=== PATIENT | male | born 1965 | race Caucasian/White ===

== ENCOUNTER 2017-07-12 18:19 | Inpatient (IN) ==
--- NOTE | 2017-07-12 18:31 | Emergency Department Note ---
Disposition Clinical Impression: Hyponatremia, Confusion Disposition: Admitted As Inpatient Condition: Fair Referrals: Nikunj Estrada MD [Primary Care Provider] - Forms: ED Satisfaction Letter Time of Disposition: 19:34 Altered Mental Status HPI - General Chief Complaint: ED Altered Mental Status Stated Complaint: altered mental status Time Seen by Provider: 07/12/17 18:24 Source: patient, EMS Mode of arrival: ambulatory Limitations: no limitations Nursing Notes Reviewed: Yes Vital Signs Reviewed: Yes - History of Present Illness HPI Narrative: 52-year-old male who was at the halfway who apparently had some altered mental status not acting appropriately. Patient does have a history of seizure disorder. I have seen this patient many times in the past he did have a call problem but states he has not drank in several years. On arrival here he is interacting answers questions appropriately. Initial working diagnosis is the patient was postictal following the seizure. MD complaint: altered mental status Onset (ago): Just [employer] Timing confirmed by: caregiver Pain Severity: none Context: seizure disorder, history psychiatric disease Associated symptoms: Reports: denies other symptoms - Related Data Home Medications Medication Instructions Recorded Confirmed Albuterol Sulfate [Proair 2 puff IH Q4HR PRN 08/20/15 05/22/16 Respiclick] Alendronate Sodium [Fosamax] 70 mg PO MO 08/20/15 05/22/16 Atenolol [Tenormin] 25 mg PO DAILY 08/20/15 05/22/16 Citalopram [CeleXA] 40 mg PO DAILY 08/20/15 05/22/16 Cyproheptadine HCl 4 mg PO TID 08/20/15 05/22/16 Ferrous Sulfate 325 mg PO DAILY 08/20/15 05/22/16 Folic Acid 1 mg PO DAILY 08/20/15 05/22/16 Megestrol Acetate [Megace] 80 mg PO DAILY 08/20/15 05/22/16 Montelukast [Singulair] 10 mg PO HS 08/20/15 05/22/16 OLANZapine [Zyprexa] 30 mg PO QAM 08/20/15 05/22/16 Phenytoin Sodium Extended 200 mg PO BID 08/20/15 05/22/16 [Phenytek] Ranitidine HCl [Zantac] 150 mg PO BID 08/20/15 05/22/16 Trihexyphenidyl [Artane] 2 mg PO BID 08/20/15 05/22/16 Zolpidem [Ambien] 10 mg PO HS 08/20/15 05/22/16 clonazePAM [Clonazepam] 1 mg PO BID 08/20/15 05/22/16 Calcium Carbonate/Vitamin D3 1 tab PO DAILY 12/27/15 05/22/16 [Calcium 500-Vit D3 400 Tablet] Doxepin HCl 100 mg PO HS 12/27/15 05/22/16 Lactose-Reduced Food [Ensure Plus] 1 bottle PO QID 12/27/15 05/22/16 metFORMIN [Glucophage] 500 mg PO BIDWM 12/27/15 05/22/16 Prazosin [Minipress] 1 mg PO HS 05/22/16 05/22/16 risperiDONE [Risperdal] 2 mg PO BID 05/22/16 05/22/16 Previous Rx's Medication Instructions Recorded Levofloxacin [Levaquin] 750 mg PO DAILY #5 tablet 05/24/16 Sulfamethoxazole/Trimeth DS 1 each PO BID #14 tablet 12/10/16 [Bactrim DS] Allergies Allergy/AdvReac Type Severity Reaction Status Date / Time No Known Allergies Allergy Verified 08/20/15 17:08 All systems ED: reviewed and negative except as stated. Constitutional: Denies: fever, chills, weakness, weight change Eyes: Denies: eye pain, eye discharge, vision change ENT ED: Denies: ear pain, throat pain, dental pain, hearing loss, epistaxis, congestion, dysphagia Cardiovascular: Denies: chest pain, palpitations, dyspnea on exertion, edema, syncope Respiratory: Denies: cough, dyspnea, wheezes, hemoptysis, stridor Gastrointestinal: Denies: abdominal pain, nausea, vomiting, diarrhea, constipation, hematemesis, melena, hematochezia Genitourinary: Denies: urgency, dysuria, frequency, hematuria Musculoskeletal: Denies: back pain, neck pain, arthralgia, myalgia Integumentary: Denies: rash, abrasion, lesions Neurological: Reports: other (Altered mental status). Denies: headache, weakness, numbness, paresthesias, confusion, abnormal gait, vertigo Psychiatric: Denies: anxiety, depression, suicidal thoughts, homicidal thoughts , auditory hallucinations, visual hallucinations Endocrine: Denies: fatigue Hematological/Lymphatic: Denies: easy bleeding, easy bruising Allergic/Immunologic: Denies: facial swelling, urticaria Past Medical History - Past Medical History Medical history: Reports: asthma, diabetes, GERD, hyperlipidemia, hypertension, seizures, other Surgical history: Reports: herniorrhaphy, other Psychiatric history: Reports: schizophrenia - Social History Smoking Status: Former smoker Smokeless Tobacco Status: No Alcohol use: Reports: none Drug use: Reports: none Physical Exam - General Limitations: no limitations General appearance: alert, in no apparent distress - Head Head exam: atraumatic, normocephalic, normal inspection - Eye Eye exam: Present: normal appearance - ENT ENT exam: normal exam, normal oropharynx, mucous membranes moist - Neck Neck exam: Present: normal inspection, full ROM, trachea midline - Chest Chest inspection: Present: normal inspection, symmetric chest wall rise - Respiratory Respiratory exam: Present: normal lung sounds bilaterally - Cardiovascular Cardiovascular exam: Present: regular rate, normal rhythm, normal heart sounds - Abdominal Exam Abdominal exam: Present: soft, Non-Tender. Absent: tenderness, distention, guarding, rebound, rigidity - Extremities Exam Extremities exam: Present: normal inspection, full ROM. Absent: tenderness, pedal edema - Expanded Lower Extremity Exam Neurovascular/Tendon exam: Absent: motor deficit, sensory deficit, tendon deficit Gait: observed and normal - Back Exam Back exam: Present: normal inspection, full ROM. Absent: tenderness - Neurological Exam Neurological exam: Present: alert, oriented X3 - Psychiatric Psychiatric exam: Present: normal affect, normal mood - Skin Skin exam: Present: warm, dry, intact, normal color Course - Reevaluation(s) Reevaluation #1: 52-year-old male with history seizure disorder bipolar disorder comes in with confusion at the halfway. Patient's evaluation included electrolytes which showed sodium of 120. Consultation obtained with nephrology will start him on his normal saline at 75 an hour to admit. Time: 19:33 - Consultations Consultation #1: Discussed with Dr. Humphreys, we'll start sodium chloride at 75 mL an hour. Time: 19:15 Consultation #2: Discussed with , admit. Time: 19:32 Vital Signs Temperature 98.3 F 07/12/17 18:22 Pulse Rate 89 07/12/17 18:22 Respiratory Rate 18 07/12/17 18:22 Blood Pressure 134/86 07/12/17 18:22 O2 Sat by Pulse Oximetry 98 07/12/17 18:22 Temperature 98.3 F 07/12/17 18:22 Pulse Rate 89 07/12/17 18:22 Respiratory Rate 18 07/12/17 18:22 Blood Pressure 134/86 07/12/17 18:22 O2 Sat by Pulse Oximetry 98 07/12/17 18:22 Oxygen Delivery Oxygen Delivery Room Air Altered Mental Status - Lab Data Result diagrams: 07/12/17 18:54 07/12/17 18:54 Lab Results 07/12/17 07/12/17 Range/Units 18:54 18:54 WBC 8.1 (4.3-11.1) K/mcL RBC 3.60 L (4.19-5.50) M/mcL Hgb 11.4 L (12.9-16.9) g/dL Hct 32.6 L (37.5-50.1) % MCV 90.6 (83.0-100.0) fL MCH 31.7 (28.0-33.3) pg MCHC 35.0 (31.6-35.5) g/dL RDW 13.2 (11.5-14.5) % Plt Count 267 (140-400) K/mcL MPV 8.9 L (9.4-12.4) fL Immature Gran % 0.4 (0-4) % Seg Neutrophils % 73.2 % Lymphocytes % 16.9 % Monocytes % 9.2 % Eosinophils % 0.2 % Basophils % 0.1 % Neutrophils # 5.9 (1.6-8.9) K/mcL Lymphocytes # 1.4 (0.6-4.6) K/mcL Monocytes # 0.8 (0.0-1.3) K/mcL Eosinophils # 0.0 (0.0-0.6) K/mcL Basophils # 0.0 (0.0-0.2) K/mcL Sodium 120 L* (136-145) mEq/L Potassium 4.3 (3.5-4.5) mEq/L Chloride 90 L (98-109) mEq/L Carbon Dioxide 19 (19-29) mEq/L BUN 6 L (8-26) mg/dL Creatinine 0.65 L (0.72-1.25) mg/dL Est GFR ( Amer) > 60 (> 60) Est GFR (Non-Af Amer) > 60 (> 60) BUN/Creatinine Ratio 9 (6-26) Glucose 99 (70-99) mg/dL Calculated Osmolality 248 L (280-300) Calcium 8.4 L (8.6-10.8) mg/dL Magnesium 1.6 (1.6-2.6) mg/dL Salicylates < 5.0 L (15-30) mg/dL Acetaminophen < 1.0 L (10-30) mcg/mL Phenytoin 14.3 (10-20) mcg/mL Ethyl Alcohol < 10 (0-10) mg/dL - EKG Data EKG attestation: Yes I reviewed and interpreted this EKG. EKG shows normal: sinus rhythm Rate: normal Rhythm: NSR Voltage: c/w LVH Interpretation: no acute changes TPA Checklist - LKW: 3-4.5 hrs Add. Warnings/Precautions Patient/family understanding: The patient/family members have been counseled and understood the risk, benefit , and alternatives of treatment.
[2017-07-12 19:03] LABS: Basophils % 0.1 %; Eosinophils % 0.2 %; Hematocrit 32.6 % (37.5-50.1); Hemoglobin 11.4 g/dL (12.9-16.9); Immature Granulocytes % 0.4 % (0-4); Lymphocytes # 1.4 K/mcL (0.6-4.6); Lymphocytes % 16.9 %; Mean Corpuscular Hemoglobin 31.7 pg (28.0-33.3); Mean Corpuscular Volume 90.6 fL (83.0-100.0); Mean Platelet Volume 8.9 fL (9.4-12.4); Monocytes # 0.8 K/mcL (0.0-1.3); Monocytes % 9.2 %; Neutrophils # 5.9 K/mcL (1.6-8.9); Platelet Count 267 K/mcL (140-400); Red Cell Distribution Width 13.2 % (11.5-14.5); Segmented Neutrophils % 73.2 %
[2017-07-12 19:16] LABS: BUN/Creatinine Ratio 9 (6-26); Blood Urea Nitrogen 6 mg/dL (8-26); Calcium 8.4 mg/dL (8.6-10.8); Carbon Dioxide 19 mEq/L (19-29); Chloride 90 mEq/L (98-109); Glucose 99 mg/dL (70-99); Magnesium 1.6 mg/dL (1.6-2.6); Osmolality,Calculated 248 (280-300); Potassium 4.3 mEq/L (3.5-4.5); eGFR For African Americans > 60 (> 60); eGFR For Non-African Americans > 60 (> 60)
[2017-07-12 19:17] LABS: Acetaminophen < 1.0 mcg/mL (10-30); Ethanol < 10 mg/dL (0-10); Salicylate < 5.0 mg/dL (15-30)
[2017-07-12 19:19] LABS: Sodium 120 mEq/L (136-145)
[2017-07-12 19:22] LABS: Phenytoin (Dilantin) 14.3 mcg/mL (10-20)
[2017-07-12 19:30] LABS: Bilirubin,Urine Negative (Negative); Blood,Urine Negative (Negative); Clarity,Urine Clear (Clear); Color,Urine Yellow (Yellow); Glucose,Urine (UA) Normal (Normal); Ketones,Urine Negative (Negative); Leukocyte Esterase,Urine Negative (Negative); Nitrite,Urine Negative (Negative); Protein,Urine Negative (Neg-Trace); Specific Gravity,Urine 1.007 (1.010-1.025); Urobilinogen,Urine Normal (Normal)
[2017-07-12 19:35] LABS: Amphetamine Screen,Urine Negative ng/mL (Cutoff=1000); Barbiturate Screen,Urine Negative ng/mL (Cutoff=200); Benzodiazepines Screen,Urine Negative ng/mL (Cutoff=200); Cannabinoid Screen,Urine Negative ng/mL (Cutoff = 50); Cocaine Screen,Urine Negative ng/mL (Cutoff= 300); Opiate Screen,Urine Negative ng/mL (Cutoff=300); Phencyclidine Screen,Urine Negative ng/mL (Cutoff=25)
[2017-07-12] MEDS: 0.9 % Sodium Chloride 1,000 ML IVC SCH (19:40)
[2017-07-12] MEDS ORDERED: D5% in Water 1,000 ML IVC PRN (21:53)
[2017-07-12] MEDS ORDERED: Acetaminophen 325 MG TABLET PO PRN (21:53)
[2017-07-12] MEDS ORDERED: *HR* Dextrose 50 % in Water (Syg) 50 ML SYRINGE IVP PRN (21:53)
[2017-07-12] MEDS ORDERED: Dextrose Gel 15 GM PO PRN ×2 (21:53)
[2017-07-12] MEDS ORDERED: Naloxone 0.4 MG/ML INJ IVP PRN (21:53)
[2017-07-12] MEDS ORDERED: *HR* LORazepam 2 MG/ML VIAL IVP PRN (21:59)
[2017-07-12] MEDS ORDERED: Magnesium Sulfate 2 GM in D5% in Water 100 ML IVPB ONE (22:01)
--- NOTE | 2017-07-12 22:13 | Internal Med History&Physical ---
Date of Encounter: 07/12/17 Time of Encounter: 21:25 Assessment and Plan (1) Hyponatremia Current visit: No Status: Acute 1. Will continue IVF as recommended per Dr. Cheng. 2. Will trend serial sodium levels. 3. Consult Dr. Cheng placed by ER staff -- appreciated nephrologic support. 4. Given prior abnormal CXR and Chest CT along with smoking history, will order repeat chest CT to evaluate for possible malignancy. (2) Diabetes Current visit: No Status: Chronic 1. Stop Metformin while in the hospital. 2. Will place on SSI and monitor glucose closely. 3. Adjust insulin as necessary. Qualifiers: Diabetes mellitus type: type 2 Diabetes mellitus complication status: without complication Diabetes mellitus salvage determiner insulin use: without correction use Qualified Code(s): E11.9 - Type 2 diabetes mellitus without complications (3) Seizure disorder Current visit: No Status: Chronic 1. Will place on seizure precautions and continue Dliantin. 2. Monitor closely for seizures and use Ativan PRN. 3. Will place on CIWA protocol given hsitory of heavy alcohol use in the past. Patient denies any current alcohol use. (4) DVT prophylaxis Current visit: No Status: Acute 1. Heparin SQ. Internal Medicine - H&P: HPI Chief complaint: seizure; hyponatremia Admitted From: Emergency Dept Plans for Post Hospital Care: Home History of present illness: Mr. Mishra is a 52 year old male who presents to the ER tonight for concerns of altered mental status and possible seizure. He [facility] in a [facility] due to his underlying psychiatric disorders and history of alcohol abuse. When he arrived in the ER, there was no one accompanying him according to ER staff discussions. ER physician contacted the penitentiary and there were reports that he was not acting himself and likely postictal from a seizure. According to the penitentiary staff and patient, he has not had any alcohol in years and has been alcohol free. He was found to have evidence of hyponatremia sodium level 120. His phenytoin level was 14. Dr. Rutherford contacted Dr. Cheng regarding sodium level and for consultation for hyponatremia. Dr. Cheng recommended starting him on saline infusion and trending his sodium levels. Patient was then admitted to the hospitalist service. Upon my assessment of the patient, he is lying in bed comfortably and in no distress. He is alert and oriented 3. He confirms that he has been alcohol free for several years now. He is rather cachectic and appears malnourished. I asked him about his oral intake, and he states he is eating and drinking fluids well. He denies any polydipsia. He confirms he has seizures and type 2 diabetes. He does not recall when his last seizure was. He is not sure if he had a seizure today. He does look a little dehydrated on clinical exam, however. He denies any fevers, cough, congestion, vomiting, or diarrhea. Past Med Surg Social Fam HX - Past Medical History Attestation: Yes The following information was validated with the patient. Source: patient, old records reviewed Medical history: asthma, diabetes, GERD, hyperlipidemia, hypertension, seizures Psychiatric history: schizophrenia - Past Surgical History Surgical History: herniorrhaphy, other - Social History Smoking Status: Former smoker Smokeless Tobacco Status: Yes Alcohol use: none Drug use: none Current living situation: Prison Activity Level: Independent ambulation Recent Out of Country Travel Within the Last 8 Weeks: No - Family History Father Living Status: Hx Family Cardiac Disorders: Yes (Heart problem) Hx Family Cancer: Yes (Liver cancer) Mother Living Status: Hx Family Neuromuscular Disorders: Yes (CVA) Hx Family Neurologic Disorders: No (MOTHER PASSED FROM A STROKE) Internal Medicine - H&P: Meds Albuterol Sulfate [Proair Respiclick] 2 puff IH Q4HR PRN 08/20/15 [History] Alendronate Sodium [Fosamax] 70 mg PO MO 08/20/15 [History] Atenolol [Tenormin] 25 mg PO DAILY 08/20/15 [History] Citalopram [CeleXA] 40 mg PO DAILY 08/20/15 [History] Cyproheptadine HCl 4 mg PO TID 08/20/15 [History] Ferrous Sulfate 325 mg PO DAILY 08/20/15 [History] Folic Acid 1 mg PO DAILY 08/20/15 [History] Megestrol Acetate [Megace] 80 mg PO DAILY 08/20/15 [History] Montelukast [Singulair] 10 mg PO HS 08/20/15 [History] OLANZapine [Zyprexa] 30 mg PO QAM 08/20/15 [History] Phenytoin Sodium Extended [Phenytek] 200 mg PO BID 08/20/15 [History] Ranitidine HCl [Zantac] 150 mg PO BID 08/20/15 [History] Trihexyphenidyl [Artane] 2 mg PO BID 08/20/15 [History] Zolpidem [Ambien] 10 mg PO HS 08/20/15 [History] clonazePAM [Clonazepam] 1 mg PO BID 08/20/15 [History] Calcium Carbonate/Vitamin D3 [Calcium 500-Vit D3 400 Tablet] 1 tab PO DAILY [History] Doxepin HCl 100 mg PO HS 12/27/15 [History] Lactose-Reduced Food [Ensure Plus] 1 bottle PO QID 12/27/15 [History] metFORMIN [Glucophage] 500 mg PO BIDWM 12/27/15 [History] Prazosin [Minipress] 1 mg PO HS 05/22/16 [History] risperiDONE [Risperdal] 2 mg PO BID 05/22/16 [History] Levofloxacin [Levaquin] 750 mg PO DAILY #5 tablet 05/24/16 [Rx] Sulfamethoxazole/Trimeth DS [Bactrim DS] 1 each PO BID #14 tablet 12/10/16 [Rx] 3 Allergy/AdvReac Type Severity Reaction Status Date / Time No Known Allergies Allergy Verified 08/20/15 17:08 - Constitutional Constitutional: no chills, no fever(s), no night sweats - EENT Eyes: no blurry vision, no change in vision Ears: no ear pain, no tinnitus Nose, mouth and throat: no nasal congestion, no nasal discharge, no sinus pressure, no sore throat - Cardiovascular Cardiovascular ROS IM: no chest pain, no diaphoresis, no dyspnea, no dyspnea on exertion, no edema, no palpitations, no paroxysmal nocturnal dyspnea - Respiratory Respiratory: no cough, no hemoptysis, no dyspnea on exertion, no chest congestion, no excessive phlegm production - Gastrointestinal Gastrointestinal: no abdominal pain, no change in bowel habits, no diarrhea, no hematemesis, no hematochezia, no melena, no nausea, no vomiting - Genitourinary Genitourinary ROS male: no dysuria, no flank pain, no hematuria - Musculoskeletal Musculoskeletal ROS IM: no arthralgias, no back pain - Integumentary Integumentary IM: no rash, no jaundice - Neurological Neurological ROS: convulsions, no dizziness, no focal weakness, no frequent falls, no headache(s), no paresthesias, no vertigo - Psychiatric Psychiatric: no anxiety, no confusion, no depression - Endocrine Endocrine IM: no cold intolerance, no heat intolerance, no polydipsia, no polyphagia, no polyuria - Allergic/Immunologic Allergic/Immunologic: no wheezing, no GI upset with certain foods - Constitutional Vitals: Temp Pulse Resp BP Pulse Ox 98.2 F 64 18 119/81 100 07/12/17 20:26 07/12/17 20:26 07/12/17 20:26 07/12/17 20:26 07/12/17 20:26 General appearance: Present: cachectic, cooperative, A&O X 3, pleasant, no acute distress, answers questions appropriately Exam: looks dry; hard of hearing - Head Head exam: Present: atraumatic, normal inspection - Expanded Head Exam Head exam expanded: Absent: abrasion, contusion, general tenderness - Eye Eye exam: Present: EOMI, normal appearance, PERRL. Absent: scleral icterus Pupils: Present: normal accommodation - ENT ENT exam: Present: mucous membranes dry, normal exam, normal oropharynx - Neck Neck exam general surgery: Present: full ROM, supple, trachea midline. Absent: lymphadenopathy, tenderness, nuchal rigidity, thyromegaly - Expanded Neck Exam Neck exam: Absent: carotid bruit - Respiratory Respiratory exam: Present: CTAB. Absent: rales, respiratory distress, rhonchi, wheezes - Cardiovascular Cardiovascular exam: Present: RRR, +S1, +S2. Absent: diastolic murmur, systolic murmur - GI/Abdominal GI/Abdominal exam: Present: normal bowel sounds, soft. Absent: guarding, hepatomegaly, rebound, splenomegaly, tenderness - Extremities Exam Extremities exam: Present: full ROM, normal capillary refill, warm, radial pulses palpable and symmetrical. Absent: calf tenderness, joint swelling, pedal edema, tenderness - Back Exam Back exam: Present: normal inspection. Absent: CVA tenderness (L), CVA tenderness (R) - Neurological Exam Neurological exam: Present: alert, CN II-XII intact, oriented X3, no focal deficits, strengths equal and symetr throughout Additional comments: hard of hearing - Psychiatric Psychiatric exam: Present: flat affect, normal mood - Skin Skin exam: Present: dry, warm. Absent: rash Internal Med - H&P Results - Labs CBC & Chem 7: 07/12/17 18:54 07/12/17 18:54 - EKG Data -: EKG Interpreted by Myself - EKG Data Prior EKG available for review: yes When compared to previous EKG: there is no significant change EKG comments: 07/12/17 22:19 sinus rhythm - Diagnostic Studies CT scan - head Status: image reviewed by me (negative; chronic volume loss as reported per radiology)
[2017-07-12 22:21] LABS: Hemoglobin A1C 5.3 %
[2017-07-12] MEDS: Vitamin B Complex/Vit C/Vit E 1 EACH TABLET PO SCH (22:52)
[2017-07-12] MEDS: Thiamine (B-1) 100 MG TABLET PO SCH (22:52)
[2017-07-12] MEDS: clonazePAM 1 MG TABLET PO SCH (22:52)
[2017-07-12] MEDS: Folic Acid 1 MG TABLET PO SCH (22:52)
[2017-07-12 23:15] LABS: BUN/Creatinine Ratio 9 (6-26); Blood Urea Nitrogen 6 mg/dL (8-26); Calcium 9.1 mg/dL (8.6-10.8); Carbon Dioxide 17 mEq/L (19-29); Chloride 91 mEq/L (98-109); Glucose 91 mg/dL (70-99); Osmolality,Calculated 255 (280-300); Potassium 4.4 mEq/L (3.5-4.5); Sodium 124 mEq/L (136-145); eGFR For African Americans > 60 (> 60); eGFR For Non-African Americans > 60 (> 60)
[2017-07-13 04:24] LABS: INR 0.9; Prothrombin Time 9.4 Seconds (9.4-12.1)
[2017-07-13 04:27] LABS: Activated Partial Thrombo Time 30.6 Seconds (26.0-36.0)
[2017-07-13 04:32] LABS: Alanine Aminotransferase 21 Units/L (0-55); Albumin 3.1 g/dL (3.5-5.0); Albumin/Globulin Ratio 0.9 (1.1-2.2); Alkaline Phosphatase 142 Units/L (38-126); Aspartate Amino Transferase 21 Units/L (5-34); BUN/Creatinine Ratio 8 (6-26); Bilirubin,Total 0.2 mg/dL (0.2-1.2); Calcium 8.1 mg/dL (8.6-10.8); Carbon Dioxide 23 mEq/L (19-29); Chloride 96 mEq/L (98-109); Globulin 3.3 g/dL (2.4-3.5); Glucose 99 mg/dL (70-99); Magnesium 2.4 mg/dL (1.6-2.6); Osmolality,Calculated 255 (280-300); Sodium 124 mEq/L (136-145); Total Protein 6.4 g/dL (6.0-8.3); eGFR For African Americans > 60 (> 60); eGFR For Non-African Americans > 60 (> 60)
[2017-07-13 04:40] LABS: Blood Urea Nitrogen 5 mg/dL (8-26)
[2017-07-13] MEDS: *HR* Heparin 5,000 UNIT/ML VIAL SQ SCH ×2 (06:37→20:11)
[2017-07-13] MEDS: Insulin LISPRO 300 UNITS/3 ML VIAL SQ SCH ×3 (08:14→19:48)
[2017-07-13] MEDS: 0.9 % Sodium Chloride 1,000 ML IVC SCH (08:23)
[2017-07-13] MEDS: Folic Acid 1 MG TABLET PO SCH (08:30)
[2017-07-13] MEDS: Vitamin B Complex/Vit C/Vit E 1 EACH TABLET PO SCH (08:30)
[2017-07-13] MEDS: Thiamine (B-1) 100 MG TABLET PO SCH (08:30)
[2017-07-13] MEDS: clonazePAM 1 MG TABLET PO SCH ×2 (08:30→20:12)
[2017-07-13 08:48] LABS: BUN/Creatinine Ratio 8 (6-26); Calcium 8.7 mg/dL (8.6-10.8); Carbon Dioxide 26 mEq/L (19-29); Chloride 92 mEq/L (98-109); Glucose 129 mg/dL (70-99); Osmolality,Calculated 257 (280-300); Potassium 4.5 mEq/L (3.5-4.5); Sodium 124 mEq/L (136-145); eGFR For African Americans > 60 (> 60); eGFR For Non-African Americans > 60 (> 60)
[2017-07-13 08:52] LABS: Blood Urea Nitrogen 5 mg/dL (8-26)
--- NOTE | 2017-07-13 11:38 | Internal Med Progress Note ---
Date of Encounter: 07/13/17 Time of Encounter: 11:36 - Assessment and plan (1) Pneumonia Current Visit: Yes Status: Acute Assessment and plan: No fever, leukocytosis, cough or hypoxia. CT chest shows possible right upper lobe infiltrate. Given underlying hyponatremia, will start empiric IV antibiotics-Levaquin. Send blood cultures. Supportive care. Qualifiers: Pneumonia type: due to unspecified organism Laterality: right Lung location: upper lobe of lung Qualified Code(s): J18.1 - Lobar pneumonia, unspecified organism (2) Hyponatremia with decreased serum osmolality Current Visit: Yes Status: Acute Assessment and plan: Patient has acute on chronic hypoosmolar hyponatremia. Baseline serum sodium noted to be in high 120's. Serum sodium improved to 124, stays around the same. Noted to be on multiple psychotropic medications including SSRIs that could cause SIADH. 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 Nephrology consult appreciated, follow-up serum and urine osmolality, urine sodium and urine uric acid. Hold IV hydration. (3) Diabetes Current Visit: Yes Status: Chronic Assessment and plan: Blood sugars noted to be well controlled. Continue Accu-Chek blood glucose monitoring with sliding scale insulin. Diabetic diet. Qualifiers: Diabetes mellitus type: type 2 Diabetes mellitus complication status: without complication Diabetes mellitus mcc insulin use: without buttermaker use Qualified Code(s): E11.9 - Type 2 diabetes mellitus without complications (4) Essential hypertension Current Visit: Yes Status: Chronic (5) Seizure disorder Current Visit: Yes Status: Chronic Assessment and plan: Continue home medications, seizure precautions. (6) Schizophrenia Current Visit: Yes Status: Chronic Assessment and plan: Hold Celexa, Zyprexa, risperidone at this time. Stable mood. Continue to monitor closely. Qualifiers: Schizophrenia type: unspecified Qualified Code(s): F20.9 - Schizophrenia, unspecified - Subjective Interval history: Patient is very hard of hearing, cannot provide complete history. Denies nausea , vomiting, chest or abdominal pain, weakness; asks when he can go home; - Constitutional Vitals: Temp Pulse Resp BP Pulse Ox 97.5 F L 69 18 127/84 97 07/13/17 11:13 07/13/17 11:13 07/13/17 11:13 07/13/17 11:13 07/13/17 11:13 General appearance: Present: cachectic, A&O X 3, pleasant, no acute distress. Absent: answers questions appropriately - Respiratory Respiratory exam: Present: CTAB. Absent: accessory muscle use, rales, rhonchi, wheezes - Cardiovascular Cardiovascular exam: Present: RRR, +S1, +S2. Absent: diastolic murmur, gallop, rubs, systolic murmur - GI/Abdominal GI/Abdominal exam: Present: normal bowel sounds, soft, no peritoneal signs. Absent: distended, tenderness - Extremities Exam Extremities exam: Present: full ROM, warm, radial pulses palpable and symmetrical. Absent: calf tenderness, cyanotic, pedal edema - Neurological Exam Neurological exam: Present: CN II-XII intact, oriented X3, no focal deficits. Absent: pronater drift, facial droop, speech deficit Internal Medicine: Result - Labs CBC & Chem 7: 07/12/17 18:54 07/13/17 14:30 Labs: BMP 07/12/17 07/13/17 07/13/17 22:52 03:16 08:19 Sodium 124 L 124 L 124 L Potassium 4.4 4.0 4.5 Chloride 91 L 96 L 92 L Carbon Dioxide 17 L 23 26 BUN 6 L 5 L 5 L Creatinine 0.65 L 0.59 L 0.65 L Glucose 91 99 129 H Calcium 9.1 8.1 L 8.7 Liver Function 07/13/17 Range/Units 03:16 Total Bilirubin 0.2 (0.2-1.2) mg/dL AST 21 (5-34) Units/L ALT 21 (0-55) Units/L Alkaline Phosphatase 142 H (38-126) Units/L Albumin 3.1 L (3.5-5.0) g/dL - ABG Interpretation ABG results: PT/INR, D-dimer PT 9.4 Seconds (9.4-12.1) 07/13/17 03:16 - Impressions Impressions Chest CT 07/13/17 10:00 IMPRESSION: Interval increase in ground-glass and consolidative opacities in the right upper lobe which are still favored to represent infectious/inflammatory changes. However, metastatic disease remains a possibility and continued follow-up imaging is recommended. Postsurgical changes of resection in the left lower lobe with residual posttreatment changes. D/ / Josué Torerz MD / Josué Torrez MD Interpreting Provider: Josué Torrez MD Consult Discharge Plan - Plan Referrals: Nikunj Estrada MD [Primary Care Provider] -
--- NOTE | 2017-07-13 12:27 | Nephrology Consult Note ---
Date of Encounter: 07/13/17 Time of Encounter: 11:40 Assessment and Plan (1) Hyponatremia Current Visit: No Status: Acute 1. had episodes of hyponatremia in the past. currently appears euvolemic on exam. d/c IVF after current bag is completed. Urine specific gravity is low suggesting that he a has free water clearance. BUN is low at 5 Appears that patient [facility] a lot of [facility] at the [facility] which is contributing to hyponatremia. Another concern is SIADH secondary to Celexa and Doxepen . Urine studies would help differentiate but are not available at the moment Check urine sodium, urine osmolarity, uric acid, serum osmolarity, TSH and am cortisol 2. RUL infiltrate on CT. to be strted on ABX. needs a rpt imaging study in future to f/u on resolution History of Present Illness - Reason for Consult hyponatremia - Chief Complaint hyponatremia - History of Present Illness 52-year-old male, resident of [facility] was admitted with confusion and possible seizure. In ER he was responding appropriately labs significant for serum sodium of 120. Urine specific gravity 1.007. v/s temperature 98, P 89, BP 134/86 normal saline 75 ML per hour was started on admission, f/u serum sodium is 125 h/o alcoholism in the past, but denies anr recently. He takes Celexa and Doxepen. Admits to drinking plenty of fluids at the [facility] He was admitted in August and May of last year with hyponatremia. Serum sodium improved with IV fluids and restricting PO fluid intake urine osmolarity 50, urine sodium 21 in 08/2015. Urine osm 83, sodium 24, serum osmolarity 234 in 12/2015 CT head; stable moderate diffuse cerebral/cerebellar volume loss, mild white matter disease. CT chest; increased ground glass spasticity in the right upper lobe, postsurgical changes of partial resection in the left lower lobe Past Med Surg Social Fam HX - Past Medical History Medical history: asthma, diabetes, GERD, hyperlipidemia, hypertension, seizures Psychiatric history: schizophrenia - Past Surgical History Surgical History: herniorrhaphy, other - Social History Smoking Status: Former smoker Smokeless Tobacco Status: Yes Alcohol use: none Drug use: none - Family History Father Living Status: Hx Family Cardiac Disorders: Yes (Heart problem) Hx Family Cancer: Yes (Liver cancer) Mother Living Status: Hx Family Neuromuscular Disorders: Yes (CVA) Hx Family Neurologic Disorders: No (MOTHER PASSED FROM A STROKE) Medications and Allergies Albuterol Sulfate [Proair Respiclick] 2 puff IH Q4HR PRN 08/20/15 [History] Alendronate Sodium [Fosamax] 70 mg PO MO 08/20/15 [History] Atenolol [Tenormin] 25 mg PO DAILY 08/20/15 [History] Citalopram [CeleXA] 40 mg PO DAILY 08/20/15 [History] Cyproheptadine HCl 4 mg PO TID 08/20/15 [History] Ferrous Sulfate 325 mg PO DAILY 08/20/15 [History] Folic Acid 1 mg PO DAILY 08/20/15 [History] Megestrol Acetate [Megace] 80 mg PO DAILY 08/20/15 [History] Montelukast [Singulair] 10 mg PO HS 08/20/15 [History] OLANZapine [Zyprexa] 15 mg PO QAM 08/20/15 [History] Phenytoin Sodium Extended [Phenytek] 200 mg PO BID 08/20/15 [History] Ranitidine HCl [Zantac] 150 mg PO BID 08/20/15 [History] Trihexyphenidyl [Artane] 2 mg PO BID 08/20/15 [History] Zolpidem [Ambien] 10 mg PO HS 08/20/15 [History] clonazePAM [Clonazepam] 1 mg PO BID 08/20/15 [History] Calcium Carbonate/Vitamin D3 [Calcium 500-Vit D3 400 Tablet] 1 tab PO DAILY [History] Doxepin HCl 100 mg PO HS 12/27/15 [History] Lactose-Reduced Food [Ensure Plus] 1 bottle PO QID 12/27/15 [History] metFORMIN [Glucophage] 500 mg PO BIDWM 12/27/15 [History] Prazosin [Minipress] 1 mg PO HS 05/22/16 [History] risperiDONE [Risperdal] 2 mg PO BID 05/22/16 [History] Levofloxacin [Levaquin] 750 mg PO DAILY #5 tablet 05/24/16 [Rx] Sulfamethoxazole/Trimeth DS [Bactrim DS] 1 each PO BID #14 tablet 12/10/16 [Rx] 3 Allergy/AdvReac Type Severity Reaction Status Date / Time No Known Allergies Allergy Verified 08/20/15 17:08 Review of Systems All Systems review (narrative): admits to drinking plenty of fluid at the [facility]. Appetite has been poor lately, had diarrhea in the last few days and lost some weight unable to obtain a detailed review of symptoms as patient is extremely hard of hearing denies wedding problems. Wants to know if can be discharged Exam - Vital Signs Vital signs: Initial Vital Signs Temp Pulse Resp BP Pulse Ox 98.3 F 89 18 134/86 98 07/12/17 18:22 07/12/17 18:22 07/12/17 18:22 07/12/17 18:22 07/12/17 18:22 Vital Signs - Last 8 Hours Temp Pulse Resp BP Pulse Ox 07/13/17 11:13 97.5 F L 69 18 127/84 97 07/13/17 08:25 65 07/13/17 07:36 97.6 F 63 18 115/83 100 07/13/17 03:51 97.8 F 69 18 121/79 99 Intake and Output 07/12/17 07/13/17 07/13/17 23:59 07:59 15:59 Intake Total 1650 / 1650 1000 / 1000 Output Total 900 / 900 1300 / 1300 300 / 300 Balance -900 / -900 350 / 350 700 / 700 Intake: IV Fluids 50 / 50 1000 / 1000 0.9 % Sodium Chloride 1,000 ML 1000 / 1000 @ 75 mls/hr IVC .[id number] [facility] Rx #:[id number] Magnesium Sulfate Premix 2gm/ 50 / 50 50mL 2 gm In 50 ml @ 50 mls/hr IVPB ONCE ONE Rx#:[id number] Oral 1600 / 1600 Output: Urine 900 / 900 1300 / 1300 300 / 300 Other: Weight 52.4 kg 52.7 kg Blood Glucose* 100 82 Patient Weight 07/13/17 23:59 Weight 52.7 kg - General Appearance Exam: hent; PEERL, no palor CVS; s1s2 present, regular, no murmurs, no JVD RESP; good air entry, clear ABD; soft, BT, BS present, no organomegaly EXT; no edema 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
[2017-07-13] MEDS: Levofloxacin 500 MG/100 ML 500 MG/100 ML BAG IVPB SCH (12:37)
[2017-07-13 15:00] LABS: BUN/Creatinine Ratio 10 (6-26); Blood Urea Nitrogen 7 mg/dL (8-26); Calcium 8.2 mg/dL (8.6-10.8); Carbon Dioxide 31 mEq/L (19-29); Chloride 89 mEq/L (98-109); Glucose 137 mg/dL (70-99); Osmolality,Calculated 254 (280-300); Potassium 4.5 mEq/L (3.5-4.5); Sodium 122 mEq/L (136-145); Uric Acid 2.4 mg/dL (3.5-7.2); eGFR For African Americans > 60 (> 60); eGFR For Non-African Americans > 60 (> 60)
[2017-07-13 15:20] LABS: Thyroid Stimulating Hormone 2.498 mcIU/mL (0.350-4.840)
[2017-07-13 17:54] LABS: Sodium, Urine < 20.0 mEq/L
[2017-07-13 18:19] LABS: Osmolality,Urine 106 mOsm/kg (300-1090)
[2017-07-13 22:28] LABS: BUN/Creatinine Ratio 12 (6-26); Blood Urea Nitrogen 8 mg/dL (8-26); Calcium 8.3 mg/dL (8.6-10.8); Carbon Dioxide 28 mEq/L (19-29); Chloride 95 mEq/L (98-109); Glucose 120 mg/dL (70-99); Osmolality,Calculated 262 (280-300); Sodium 126 mEq/L (136-145); eGFR For African Americans > 60 (> 60); eGFR For Non-African Americans > 60 (> 60)
[2017-07-14 04:25] LABS: Basophils % 0.1 %; Eosinophils % 0.6 %; Hematocrit 35.5 % (37.5-50.1); Hemoglobin 12.2 g/dL (12.9-16.9); Immature Granulocytes % 0.3 % (0-4); Lymphocytes # 1.4 K/mcL (0.6-4.6); Lymphocytes % 19.8 %; Mean Corpuscular HGB Conc 34.4 g/dL (31.6-35.5); Mean Corpuscular Hemoglobin 31.7 pg (28.0-33.3); Mean Corpuscular Volume 92.2 fL (83.0-100.0); Mean Platelet Volume 9.4 fL (9.4-12.4); Monocytes # 0.8 K/mcL (0.0-1.3); Monocytes % 10.7 %; Neutrophils # 4.9 K/mcL (1.6-8.9); Platelet Count 313 K/mcL (140-400); Red Blood Count 3.85 M/mcL (4.19-5.50); Red Cell Distribution Width 13.6 % (11.5-14.5); Segmented Neutrophils % 68.5 %
[2017-07-14 04:40] LABS: Albumin 3.2 g/dL (3.5-5.0); BUN/Creatinine Ratio 11 (6-26); Blood Urea Nitrogen 7 mg/dL (8-26); Calcium 8.5 mg/dL (8.6-10.8); Carbon Dioxide 25 mEq/L (19-29); Chloride 99 mEq/L (98-109); Glucose 90 mg/dL (70-99); Osmolality,Calculated 272 (280-300); Phosphorous 3.4 mg/dL (2.3-4.7); Potassium 4.6 mEq/L (3.5-4.5); Sodium 132 mEq/L (136-145); eGFR For African Americans > 60 (> 60); eGFR For Non-African Americans > 60 (> 60)
[2017-07-14] MEDS: *HR* Heparin 5,000 UNIT/ML VIAL SQ SCH (06:17)
[2017-07-14] MEDS: Insulin LISPRO 300 UNITS/3 ML VIAL SQ SCH ×2 (07:54→11:47)
[2017-07-14] MEDS: Folic Acid 1 MG TABLET PO SCH (07:58)
[2017-07-14] MEDS: clonazePAM 1 MG TABLET PO SCH (07:58)
[2017-07-14] MEDS: Thiamine (B-1) 100 MG TABLET PO SCH (07:58)
[2017-07-14] MEDS: Vitamin B Complex/Vit C/Vit E 1 EACH TABLET PO SCH (07:58)
--- NOTE | 2017-07-14 08:58 | Nephrology Progress Note ---
Date of Encounter: 07/14/17 Time of Encounter: 08:56 - Assessment and Plan (1) Hyponatremia Current Visit: No Status: Acute Patient presents with worsening hyponatremia with associated appropriately low urine osmolality. Uric acid is 8.0. These results collectively suggest that the patient has polyphagia. This is causing his hyponatremia. The uric acid of 8.0 goes against the diagnosis of SIADH. Treatment is fluid restriction. On a fluid restriction of 1.5 L per day sodium is improving. (2) Schizophrenia Current Visit: Yes Status: Chronic Qualifiers: Schizophrenia type: unspecified Qualified Code(s): F20.9 - Schizophrenia, unspecified Subjective Interval history: Patient denies any complaints. He is asking to go home. His serum sodium is up to 132. Urine output is 5.8 L. Urine osmolality is appropriately low at 106. Uric acid is 8.0. Objective - Vital Signs Vital signs: Vital Signs Temp Pulse Resp BP Pulse Ox 07/14/17 07:35 98.1 F 89 18 114/83 95 07/14/17 04:36 97.9 F 101 14 126/77 98 07/14/17 00:21 97.2 F L 67 16 124/78 97 07/13/17 20:15 61 07/13/17 19:56 97.6 F 57 16 148/90 97 07/13/17 17:05 66 07/13/17 11:25 74 16 127/84 96 07/13/17 11:13 97.5 F L 69 18 127/84 97 Intake and Output 07/13/17 07/14/17 07/14/17 23:59 07:59 15:59 Intake Total 800 / 800 120 / 120 100 / 100 Output Total 3200 / 3200 650 / 650 0 / 0 Balance -2400 / -2400 -530 / -530 100 / 100 Intake: Oral 600 / 600 120 / 120 100 / 100 Free Water 200 / 200 Output: Urine 3200 / 3200 650 / 650 0 / 0 Other: Weight 53.5 kg Blood Glucose* 87 Patient Weight 07/14/17 23:59 Weight 53.5 kg - General Appearance Exam: Patient appears to be alert and oriented. He does have decreased hearing. Lungs clear to auscultation. Heart regular rate and rhythm. Abdomen is benign. There is no peripheral edema. - Lab 07/14/17 03:50 07/14/17 03:50 Most recent lab results Calcium 8.5 mg/dL (8.6-10.8) L 07/14/17 03:50 Phosphorus 3.4 mg/dL (2.3-4.7) 07/14/17 03:50 Magnesium 2.4 mg/dL (1.6-2.6) 07/13/17 03:16 Urine Sodium < 20.0 mEq/L 07/13/17 15:40 Consult Discharge Plan - Plan Referrals: Nikunj Estrada MD [Primary Care Provider] - (SENT WEB REQUEST ON 07-14-17 @ [id number] )
--- NOTE | 2017-07-14 11:33 | Discharge Summary ---
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 Qualified Code(s): E11.9 - Type 2 diabetes mellitus without complications (4) Essential hypertension Priority: Secondary Status: Chronic (5) Seizure disorder Priority: Secondary Status: Chronic (6) Schizophrenia Priority: Secondary Status: Chronic Qualifiers: Schizophrenia type: unspecified Qualified Code(s): F20.9 - Schizophrenia, unspecified - Discharge Medications Prescriptions: Levofloxacin [Levaquin] 500 mg PO DAILY #5 tablet Home Medications: Ferrous Sulfate 325 mg PO DAILY 08/20/15 [History] Folic Acid 1 mg PO DAILY 08/20/15 [History] Montelukast [Singulair] 10 mg PO HS 08/20/15 [History] OLANZapine [Zyprexa] 15 mg PO DAILY 08/20/15 [History] Phenytoin Sodium Extended [Phenytek] 200 mg PO BID 08/20/15 [History] Ranitidine HCl [Zantac] 150 mg PO BID 08/20/15 [History] Trihexyphenidyl [Artane] 2 mg PO DAILY 08/20/15 [History] Zolpidem [Ambien] 10 mg PO HS 08/20/15 [History] clonazePAM [Clonazepam] 1 mg PO BID 08/20/15 [History] Calcium Carbonate/Vitamin D3 [Calcium 500-Vit D3 400 Tablet] 1 tab PO DAILY [History] Lactose-Reduced Food [Ensure Plus] 1 bottle PO QID 12/27/15 [History] metFORMIN [Glucophage] 500 mg PO BIDWM 12/27/15 [History] risperiDONE [Risperdal] 2 mg PO BID 05/22/16 [History] Albuterol Sulfate [Albuterol Inhaler] 2 puff IH Q4HR PRN inhaler 07/14/17 [Rx] Levofloxacin [Levaquin] 500 mg PO DAILY #5 tablet 07/14/17 [Rx] Mirtazapine [Remeron] 15 mg PO 07/14/17 [History] Allergies/Adverse Reactions: 3 Allergy/AdvReac Type Severity Reaction Status Date / Time No Known Allergies Allergy Verified 08/20/15 17:08 Procedures/tests Complete & Pending: Procedures Performed prior 72 hours Category Date Time Status CT chest with contrast [CT chest w con] [CT] Routine Cat Scan 07/13/17 10:00 Completed ECG 12 lead ECG [ECG] AM 0600 Y 07/13/17 06:00 Ordered Date of admission: 07/12/17 19:51 Primary care physician: Nikunj Estrada MD Consults: 07/12/17 21:59 Consult to Physician [CONS] Routine Consulting Provider: Javier Cheng Reason for Consult: hyponatremia Call Completed: Yes 07/13/17 06:12 Consult to PICC team [Consult to Invasive Line Access Team] [CONS] Stat Reason for Consult: Needs IV access Line Type: EPIV PICC line indications: Limited vascular access Discharging clinician: Madeline Garrison Anticipated date of discharge: 07/14/17 - Patient Status Disposition: Transfer Other Condition: Fair Functional capacity at discharge: independent ambulation Overall status at discharge: patient is progressing back to baseline - Discharge Instructions Follow Up With: Nikunj Estrada MD [Primary Care Provider] - (SENT WEB REQUEST ON 07-14-17 @ 0474 ) Additional Instructions: F/up with PCP in 1-2 weeks - Diet and Activity Activity: resume usual activities as tolerated Diet: diabetic diet, low fat, low cholesterol, low salt diet (fluid restriction to 1.5L/day) Hospital course: Mr. Mishra is a 52 year old male - Time Spent with Patient Total time spent providing and/or coordinating discharge services: Greater than 30 minutes (40 min) - Constitutional Vitals: Temp Pulse Resp BP Pulse Ox 98.1 F 89 18 114/83 95 07/14/17 07:35 07/14/17 07:35 07/14/17 07:35 07/14/17 07:35 07/14/17 07:35 General appearance: Present: cachectic, A&O X 2, pleasant, no acute distress. Absent: answers questions appropriately - Cardiovascular Cardiovascular exam: Present: RRR, +S1, +S2. Absent: diastolic murmur, gallop, rubs, systolic murmur
[2017-07-14 11:39] VITALS: BP 119/94
[2017-07-14] MEDS: Levofloxacin 500 MG/100 ML 500 MG/100 ML BAG IVPB SCH (11:46)
[2017-07-14 12:16] LABS: BUN/Creatinine Ratio 11 (6-26); Blood Urea Nitrogen 7 mg/dL (8-26); Calcium 8.7 mg/dL (8.6-10.8); Carbon Dioxide 25 mEq/L (19-29); Chloride 101 mEq/L (98-109); Glucose 70 mg/dL (70-99); Osmolality,Calculated 272 (280-300); Potassium 4.3 mEq/L (3.5-4.5); Sodium 133 mEq/L (136-145); eGFR For African Americans > 60 (> 60); eGFR For Non-African Americans > 60 (> 60)
--- NOTE | 2017-07-16 06:58 | Electrocardiograph Report ---
[place] [id number] Test Date: 2017-07-12 Pat Name: Tushar Mishra Department: 104 Room: 2N06 Gender: M Wellness Director: RADHA : 1965 Requested By: Ricky Rutherford Order Number: [id number] Reading MD: Gracy Stanford Measurements Intervals Meally Rate: 79 P: 70 MN: 128 QRS: 59 QRSD: 100 T: 45 QT: 364 QTc: 398 Interpretive Statements SINUS RHYTHM POSSIBLE LEFT VENTRICULAR HYPERTROPHY [VOLTAGE CRITERIA PLUS LAE OR QRS WIDENING] Electronically Signed On 07-16-2017 6:56:35 EST by Gracy Stanford
== END 2017-07-14 14:00 | disposition other institution (70) | DRG 139 ==
LOC: EMEROO 18:19 → 2NNU 19:51 → SUATTDRO 19:51 → 2NNU 20:09
PROVIDERS: ADMIT Pediatrics; ATTEND Internal Medicine